=== PATIENT | male | born 1960 | race Caucasian/White ===

== ENCOUNTER 2016-12-12 11:41 | Inpatient (IN) | payer MEDICARE ==
[~2016-12-12] VITALS: Ht 193 cm; Wt 65.7 kg
--- NOTE | 2016-12-14 00:28 | ER ---
ADMIT: 12/12/2016 RM/LOC: 429 [facility] MR#: [id number] [facility] [address] [place], [place] [id number] YANCEY CHRIS Caleb [address] [place] [address] Emergency Room Report SEX: M AGE: 56 : 1960 DATE: 12/12/2016 TIME: 11:41. Please refer to my T-sheet for complete H and P. HISTORY OF PRESENT ILLNESS: Briefly, the patient is a 56-year-old who comes in short of breath. He was transferred down from [place] where he was evaluated [facility]. [facility]. The patient has been short of breath. He had a big workup up there including a CAT scan of his chest revealed no PE, no obvious infiltrate, but congestive heart failure. He says his shortness of breath is worse with exertion. He is a heavy smoker; has not smoked though for a couple of weeks because he has been feeling bad. PHYSICAL EXAMINATION: VITAL SIGNS: Blood pressure 164/118, pulse 102, respiratory rate is 22, temperature 97.5, and saturation is 88% on room air. GENERAL: No acute distress. HEENT: Grossly normal. LUNGS: Slightly coarse with expiratory wheezes. HEART: Regular. ABDOMEN: Soft. SKIN: No rash. EMERGENCY DEPARTMENT COURSE: I did give him Lasix 60 IV, Decadron 10 IV, a DuoNeb, and had an IV already established. I reviewed his labs. His CT revealed again no PE but CHF. CBC normal. Chemistries normal except sodium 134, potassium 3.2, glucose 122, creatinine 1.55. Coags are normal. Cardiac enzymes negative. D-dimer was elevated, that is the reason prior for the CT. ASSESSMENT: This patient has: 1. Hypoxemia. 2. Congestive heart failure. 3. History of nicotine abuse. PLAN: Admit to the hospital under the care of Mik. Porfirio Cervantes MD/ judit JOB #: [id number] CC: Celeste Bar MD, Attending Physician Celeste Bar MD, Family Physician
--- NOTE | 2016-12-22 12:14 | HP ---
ADMIT: 12/12/2016 RM/LOC: 429 [facility] MR#: [id number] [facility] [address] [place] [id number] [place] [address] History and Physical SEX: M AGE: 56 : 1960 DATE OF SERVICE: 12/12/2016 CHIEF COMPLAINT: Shortness of breath. HISTORY OF PRESENT ILLNESS: Mr. Yancey is a 56-year-old male, who was transferred to the [facility] from [facility] in [place] today with complaints of chest pain and shortness of breath. He states that about 2 to 3 days ago, he began to have chest tightness and shortness of breath. He initially felt that he was getting a chest cold. However, the shortness of breath progressively worsened over the past couple of days. His dyspnea is worse with exertion. He does state he has not been able to sleep well over the past few nights. He has had a productive cough, however has not been able to produce any sputum. He denies any orthopnea or any leg edema. He states that the dyspnea does get better with rest. The patient does also complain of fatigue. He does also report a decrease in weight of around 50 pounds without trying over the past 6 to 12 months. The patient says his normal weight is between 190 to 200 pounds his whole life. However, states now his weight is around 140 pounds. He does state he just does not have much of an appetite anymore. The patient was also recently admitted to [facility] for cellulitis of left lower extremity and was placed on IV antibiotics. During that time, he was given Lortab for pain. He did take one of those pills this morning to help with the chest pain with minimal relief. He describes the chest pain as a tightness that is substernal that is worse with exertion. He rates the pain as 6/10 at its worst. At this time, he states the pain has improved. However, he does still experience some intermittent pain. The patient denies any fevers, vomiting, or diarrhea. He does report some recent nausea. He believes this is potentially due to the fact that he quit smoking a couple of weeks ago. He does state that he did quit smoking, however did buy a pack of cigarettes a couple of days ago and did smoke a couple of cigarettes. The patient was sent to [facility] from [facility] with radiology and laboratory reports completed. CTA chest with contrast was performed due to elevated D dimer of 978. CTA was negative for pulmonary embolism. Findings were concerning for hypervolemia or CHF due to a possible infrarenal abdominal aorta occlusion. Did recommend followup imaging as clinically warranted. Chest x-ray did show emphysema as well as pulmonary edema. The patient is currently on 4.5 L of O2. He does not wear oxygen at home. Mr. Yancey's doctors at the [facility], however he is unsure of who his primary doctor's name is. PAST MEDICAL HISTORY: 1. Gout. 2. Anxiety. 3. Depression. 4. Insomnia. PAST SURGICAL HISTORY: 1. Back surgery x2. ADMIT: 12/12/2016 RM/LOC: 429 [facility] MR#: [id number] [address] [place] [id number] CHRIS YANCEY [address] [place] [address] History and Physical SEX: M AGE: 56 : 1960 2. Left shoulder surgery with plate. 3. Right arm fracture with repair. 4. Left wrist fracture with repair. FAMILY HISTORY: Mother stomach cancer. Maternal grandfather diabetes mellitus. Father unsure of history. SOCIAL HISTORY: The patient has 2 children, who are both healthy. Marital status is . Employment status is retired [employer]. Tobacco use history, 1 to 2 packs per day x40 years. Quit 2 to 3 weeks ago. Alcohol use, 5 beers per month. Drug use, history of marijuana, amphetamine, prescription drug use, and cocaine use. The patient reports last used drugs 2 to 3 years ago. Diet, follows, no specific diet. ALLERGIES: DENIES ANY ALLERGIES. MEDICATIONS: Lortab, is unsure of dose. REVIEW OF SYSTEMS: Complete review of systems obtained and is negative other than those described in HPI. PHYSICAL EXAMINATION: VITAL SIGNS: Blood pressure 151/109, O2 of 93% on 4.5 L per nasal cannula, heart rate 101, respiratory rate 22, temperature 96.9. GENERAL: The patient is a pleasant 56-year-old male, who appears stated age. He is alert and oriented, thin, is in no apparent distress. He is resting in bed. SKIN: Warm and dry without any open lesions. No rashes or sores. HEENT: Head is normocephalic, atraumatic. PERRLA. Mucous membranes are dry. Tongue is pink. No nasal discharge. NECK: Supple. Nontender. No lymphadenopathy. No JVD or palpable masses. Trachea is midline. CARDIAC: Regular rate and rhythm. S1, S2. No murmur, rub, or gallop. RESPIRATORY: Lungs are clear. Diminished at the bases. Respirations are even and nonlabored. No accessory muscle use. ABDOMEN: Soft, tender to palpation to left upper quadrant. Bowel sounds are positive x4 quadrants. EXTREMITIES: No clubbing or cyanosis. No Pulses noted in bilateral Dorsalis pedis, feeble pulses in bilateral tibia posterioris, 2+ in bilateral upper extremities. No varicosities. NEURO: Motor sensation intact with no deficits noted. Strength is 5/5 x4 extremities. PSYCH: Intact recent remote memory. Normal judgment, insight, mood, and affect. LABORATORY DATA: As obtained per [facility]; WBC 9.25, hemoglobin 13.1, hematocrit 39.4, platelets 280. INR 1.09, PTT 25.4. Sodium 134, potassium 3.2, chloride 97, carbon dioxide 29.7, BUN 18, creatinine 1.5, glucose 127, calcium 8.6, AST 10, ALT 13. CK-MB 2.2, myoglobin 137, troponin less than 0.05, albumin 2.7. D-dimer 978. On ABG; pH was 7.486, pCO2 of 34.5, PO2 of ADMIT: 12/12/2016 RM/LOC: 429 [facility] MR#: [id number] [facility] [address] [place] [id number] CHRIS YANCEY [address] [place] [address] History and Physical SEX: M AGE: 56 : 1960 57, HCO3 of 26.1, total CO2 of 27, O2 saturation 94%, base excess 3. CRP was 12.36. ASSESSMENT AND PLAN: 1. Pulmonary edema likely due to new onset CHF( Unknown type)exacerbation. We will consult Cardiology for diuresis. Lasix 60 was given in the ER. This far, the patient has had approximately 1 L of urine output out. We will obtain echo. cardiac enzymes and EKG normal so far. LUANA is not yet started due to elevated creatinine. We will await consult from Cardiology. 2. Acute kidney injury: Unknown baseline creatnine. We will recheck BMP in the a.m. 3. Acute Hypoxic respiratory failure requiring N/C, likely multifactorial .We will continue to monitor O2 saturations on nasal canula, Imaging also suggestive of Emphysema and patient is with significant history of smoking. Will diurse him as outlined above and also place him on Duonebs 4. Hypokalemia. The patient was started on electrolyte replacement protocol. We will recheck labs in the a.m. 6. Tobacco abuse and cessation. We will order nicotine patch. 7. Elevated blood pressure in absence of hypertension. We will have Hydralazine available for systolic blood pressure greater than 180. 8. Possible infrarenal abdominal aorta occlusion: CT obtained at [facility], result suggested of questionable infrarenal abdominal aorta occlusion. We will repeat abdominal imaging with contrast to confirm findings and probably transfer to another hospital for vascular surgery consultation. Patient certainly at risk of worsening kidney injury with contrast but risks outweigh benefits at this point given no to feeble pulses in lower extremities. Will give him acetylcysteine prior to imaging. 10.Chronic back pain. Ultram and Tylenol available p.r.n. We will also provide the patient with Kapake for pain. See orders for full details of plan of care. Thank you for allowing us to participate in plan of care of this patient. Mary Bauer APRN / Celeste Bar MD / judit JOB #: [id number] CC: Celeste Bar, Attending Physician Celeste Bar, Family Physician
== END 2016-12-13 01:00 | disposition short-term general hospital (02) | DRG 291 ==
LOC: ER 11:41 → 4PCU 12:15
PROVIDERS: ADMIT Internal Medicine
DX: I50.9 Heart failure, unspecified (principal); J96.01 Acute respiratory failure with hypoxia; N17.9 Acute kidney failure, unspecified; E87.3 Alkalosis; E46 Unspecified protein-calorie malnutrition; I74.09 Other arterial embolism and thrombosis of abdominal aorta; Z68.1 Body mass index [BMI] 19.9 or less, adult; F17.210 Nicotine dependence, cigarettes, uncomplicated; J43.9 Emphysema, unspecified; M10.9 Gout, unspecified; F41.9 Anxiety disorder, unspecified; F32.9 Major depressive disorder, single episode, unspecified; G47.00 Insomnia, unspecified; E87.6 Hypokalemia; M54.9 Dorsalgia, unspecified; G89.29 Other chronic pain